=== PATIENT | female | born 1990 | race Caucasian/White ===

== ENCOUNTER 2021-05-14 17:30 | Emergency (ER) | payer MEDICAID ==
[~2021-05-14] VITALS: Ht 160 cm; Wt 93.0 kg
--- NOTE | 2021-05-14 18:00 | NUR ---
CALLED FOR TRIAGE, NO ANSWER
--- NOTE | 2021-05-14 18:23 | NUR ---
BASED ON PT LMP, OB WHEEL AT 21 WEEKS. PT TAKEN TO L&D
[2021-05-14 19:44] LABS: MEAN CORPUSCULAR HGB CONC 33.6 g/dL (32.4-35.8); MEAN PLATELET VOLUME 8.4 fL (7.4-10.4); PLATELET COUNT 251 x10^3/uL (130-400); RED BLOOD COUNT 4.26 x10^6/uL (3.82-5.3); RED CELL DISTRIBUTION WIDTH 13.2 % (9.6-15.2)
[2021-05-14 19:55] LABS: ALBUMIN 2.7 g/dL (3.4-5.0); ANION GAP 8 mmol/L (5-15); CALCIUM 8.7 mg/dL (8.5-10.1); CHLORIDE 111 mmol/L (98-107); CREATININE 0.46 mg/dL (0.55-1.02)
[2021-05-14 20:12] LABS: <PLATELET ESTIMATE> ADEQUATE; <PLT MORPHOLOGY> NORMAL PLT MORPH; BAND#(MANUAL) 0.15 x10^3/uL; BANDS%(MANUAL) 1 % (0-7); LYMPH#(MANUAL) 1.54 x10^3/uL (1-3.4); LYMPHS% (MANUAL) 10 % (22-44); METAMYELOCYTES# (MANUAL) 0.31 x10^3/uL (0-0); METAMYELOCYTES% (MANUAL) 2 % (0-1); MONOS#(MANUAL) 0.31 x10^3/uL (0.3-2.7); MONOS% (MANUAL) 2 % (2-9); SEG#(MANUAL) 13.09 x10^3/uL (1.8-6.8); SEGS% (MANUAL) 85 % (42-75)
[2021-05-14 20:13] LABS: <RBC MORPHOLOGY> NORMAL
== END 2021-05-14 18:10 | disposition home or self-care (01) ==
LOC: ED 17:35
DX: O26.892 Other specified pregnancy related conditions, second trimester (principal); R19.7 Diarrhea, unspecified; R11.2 Nausea with vomiting, unspecified; M54.5 Low back pain; R00.0 Tachycardia, unspecified; Z3A.21 21 weeks gestation of pregnancy
CPT/HCPCS: 36415; 80048; 82040; 85025; 99283

== ENCOUNTER → 2021-05-14 | Outpatient (CLI) | payer MEDICAID ==
[~2021-05-14] MED LIST: KETOROLAC 30 MG/1 ML IM ONE; KETOROLAC 30 MG/1 ML ONE; PLEASE ENTER ALLERGIES MC SCH
[2021-05-14 19:43] LABS: MEAN CORPUSCULAR HEMOGLOBIN 29.1 pg (27.0-34.8); MEAN CORPUSCULAR HGB CONC 33.8 g/dL (32.4-35.8); MEAN PLATELET VOLUME 8.4 fL (7.4-10.4); PLATELET COUNT 248 x10^3/uL (130-400); RED BLOOD COUNT 4.23 x10^6/uL (3.82-5.3); RED CELL DISTRIBUTION WIDTH 13.2 % (9.6-15.2)
[2021-05-14 20:30] VITALS: BP 118/68
[2021-05-14 20:37] LABS: MICROSCOPIC NOT IND
[2021-05-14 20:45] LABS: AMPHETAMINE SCREEN, URINE Negative (Negative); BARBITURATE SCREEN, URINE Negative (Negative); BENZODIAZEPINE SCREEN, URINE Negative (Negative); CANNABINOID SCREEN, URINE Negative (Negative); COCAINE SCREEN, URINE Negative (Negative); METHADONE SCREEN, URINE Negative (Negative); OPIATE SCREEN, URINE Negative (Negative)
== END | disposition home or self-care (01) ==
LOC: LDOP 18:45
PROVIDERS: ATTEND Obstetrics & Gynecology
DX: O26.892 Other specified pregnancy related conditions, second trimester (principal); R10.9 Unspecified abdominal pain; M54.9 Dorsalgia, unspecified; Z3A.20 20 weeks gestation of pregnancy
CPT/HCPCS: 36415; 76805; 80307; 81003; 85027; 86592; 86762; 86850; 86900; 87086; 87340; 87806; 96372; 99211; J1885; G0463; G0475